=== PATIENT | male | born 1955 ===

== ENCOUNTER 2017-07-25 06:17 | Day surgery (SDC) | payer OTHER ==
[~2017-07-25 06:17] MED LIST: CHONDROITIN SU A/HYALUR SOD 1 KIT IO ONE; EPINEPHrine/PF 1 MG/1 ML (1:1,000) AMPULE IV ONE; LIDOCAINE HCL 1% PRESERVATIVE FREE - 30ML VIAL IO ONE; LIDOCAINE HCL 4% TOPICAL SOLN (50 ML/BOTTLE) TP ONE
[2017-07-25 06:37] VITALS: BMI 23.6
[2017-07-25] MEDS: CIPROFLOXACIN 0.3% EYE DROPS 5 ML BOTTLE ONE ×3 (07:00→07:15)
[2017-07-25] MEDS: CYCLOPENTOLATE HCL 1% OPHTH SOLN 2 ML BOTTLE OP SCH ×3 (07:00→07:15)
[2017-07-25] MEDS: FLURBIPROFEN 0.03% OPHTH SOLN 2.5 ML BOTTLE OP SCH ×3 (07:00→07:30)
[2017-07-25] MEDS: PHENYLEPHRINE 2.5% OPHTH SOLN 15 ML BOTTLE OP SCH ×3 (07:00→07:30)
[2017-07-25] MEDS: TROPICAMIDE 1% OPHTH SOLN 15 ML BOTTLE OP SCH ×3 (07:00→07:30)
[2017-07-25] MEDS ORDERED: FLURBIPROFEN 0.03% OPHTH SOLN 2.5 ML BOTTLE ONE (07:14)
[2017-07-25] MEDS ORDERED: CYCLOPENTOLATE HCL 1% OPHTH SOLN 2 ML BOTTLE ONE (07:14)
[2017-07-25] MEDS ORDERED: TROPICAMIDE 1% OPHTH SOLN 15 ML BOTTLE ONE (07:14)
[2017-07-25] MEDS ORDERED: PHENYLEPHRINE 2.5% OPHTH SOLN 15 ML BOTTLE ONE (07:14)
[2017-07-25] MEDS ORDERED: LIDOCAINE HCL/PF 1% SDV 5ML VIAL ONE (07:32)
[2017-07-25] MEDS ORDERED: EPINEPHrine/PF 1 MG/1 ML (1:1,000) AMPULE ONE (07:32)
[2017-07-25] MEDS ORDERED: ACETYLCHOLINE 1:100 INTRA-OCUL 20 MG/2 ML KIT ONE (07:33)
[2017-07-25] MEDS ORDERED: LIDOCAINE HCL 4% PRESERVE-FREE 5 ML AMP ONE (07:34)
[2017-07-25] MEDS ORDERED: POVIDONE-IODINE 5% OPHTHALMIC PREP 30 ML SOLUTION ONE (07:35)
[2017-07-25] MEDS ORDERED: TETRACAINE 0.5% OPHTH SOLN 2 ML BOTTLE ONE (07:35)
[2017-07-25] MEDS ORDERED: MIDAZOLAM HCL 2 MG/2 ML SINGLE DOSE VIAL ONE (08:06)
[2017-07-25] MEDS ORDERED: LIDOCAINE HCL 4% TOPICAL SOLN (50 ML/BOTTLE) TP ONE (08:20)
[2017-07-25] MEDS ORDERED: LIDOCAINE HCL 1% PRESERVATIVE FREE - 30ML VIAL IO ONE (08:21)
[2017-07-25] MEDS ORDERED: CHONDROITIN SU A/HYALUR SOD 1 KIT IO ONE (08:21)
[2017-07-25] MEDS ORDERED: EPINEPHrine/PF 1 MG/1 ML (1:1,000) AMPULE IV ONE (08:25)
[2017-07-25] MEDS ORDERED: CIPROFLOXACIN HCL 0.3% OPHTH 2.5ML BOTTLE OP SCH (09:00)
--- NOTE | 2017-07-25 09:25 | OP ---
DATE OF OPERATION: 07/25/2017 PREOPERATIVE DIAGNOSIS: Cataract, right eye. POSTOPERATIVE DIAGNOSIS: Cataract, right eye. OPERATION: Planned phacoemulsification with posterior chamber lens implantation, right eye. SURGEON: Benny Pulido M.D. ANESTHESIA: Topical. COMPLICATIONS: None. PROCEDURE: The patient was taken to the operating room and anesthesia began with intravenous fluids and sedation. The patient then received topical anesthesia on the right eye. The patient was prepped and draped in the usual manner for sterile ophthalmic surgery. A speculum was inserted into the right eye. A self-sealing stab incision was made at the 3:00 and 10:00 positions. Viscoat was inserted into the anterior chamber. Using a 2.65 mm keratome, a self-sealing incision was made in temporal location into the anterior chamber. A 360-degree continuous capsulorrhexis was then performed. The nucleus was dislocated with hydrodissection. The nucleus was then removed from the eye with phacoemulsification with posterior capsule remaining intact. Irrigation and aspiration removed the remaining cortex from the eye. The capsule was polished. A posterior chamber lens was inserted in the bag and well centered. The posterior chamber lens was model [id number] 20 diopter. The remaining Viscoat was removed from the eye. The wound was self-sealing. Stromal hydration was performed for increased insurance of wound closure. Patient completed the procedure in uncomplicated fashion and went to the ambulatory surgical unit in stable condition. BENNY PULIDO M.D. [id number]
[2017-07-25 09:39] VITALS: BP 123/81; PULSE 76
[2017-07-25 09:41] VITALS: TEMP 98.1
== END 2017-07-25 09:40 | disposition home or self-care (01) ==
LOC: JASU-SURG 06:17
PROVIDERS: ATTEND Ophthalmology
PROC: 08RJ3JZ Replacement of Right Lens with Synthetic Substitute, Percutaneous Approach (ICD-10-PCS; principal; 2017-07-25 08:00)
DX: H26.9 Unspecified cataract (principal); F31.9 Bipolar disorder, unspecified; E11.42 Type 2 diabetes mellitus with diabetic polyneuropathy; E78.5 Hyperlipidemia, unspecified
CPT/HCPCS: 82962

== ENCOUNTER 2024-11-08 13:21 | Observation (INO) | payer OTHER ==
[2024-11-08 13:30] VITALS: BMI 21.2
[2024-11-08] MEDS: LACTATED RINGERS SOLUTION 1000 ML INFUS.BAG IV ONE ×2 (14:07→15:20)
[2024-11-08 14:17] LABS: ABSOLUTE IMMATURE GRANULOCYTES 0.02 x10^3/uL (0.0-0.031); BASOPHILS # 0.01 x10^3/uL (0.01-0.08); EOSINOPHIL % 0.6 % (0.8-7.0); EOSINOPHILS # 0.05 x10^3/uL (0.04-0.54); MCHC 32.4 g/dl (32.3-36.5); MEAN CELL VOLUME 87.0 fl (79.0-92.2); MEAN PLT VOLUME 9.5 fl (9.4-12.4); MONOCYTE # 0.60 x10^3/uL (0.30-0.82); MONOCYTE % 7.4 % (5.3-12.2); RDW 13.2 % (12.2-16.4)
[2024-11-08 14:22] LABS: INR 1.05 (0.83-1.09); PROTHROMBIN TIME (PATIENT) 11.5 SEC (9.7-13.0)
[2024-11-08 14:25] LABS: ACTIVATED PTT 21.7 SECONDS (25.2-36.5)
[2024-11-08 14:42] LABS: GLUCOSE,RANDOM 179.0 mg/dL (74-106)
[2024-11-08 14:43] LABS: TOT PROT 8.2 g/dl (6.4-8.2)
[2024-11-08 14:44] LABS: CO2 23.0 mmol/L (21-32)
[2024-11-08 14:45] LABS: ALK PHOS 47.0 U/L (40-150)
[2024-11-08 14:48] LABS: SGOT/AST 40.0 U/L (5-34); SGPT/ALT 19.0 U/L (0-55)
[2024-11-08 14:49] LABS: CREATININE 0.64 mg/dL (0.55-1.3)
[2024-11-08 14:55] LABS: LACTIC ACID 3.2 mmol/L (0.4-2.0)
[2024-11-08 16:43] LABS: HIV INTERPRETATION NEGATIVE (NEGATIVE)
[2024-11-08 17:01] LABS: URINE APPEARANCE CLEAR; URINE BILIRUBIN NEGATIVE (NEGATIVE); URINE COLOR YELLOW; URINE GLUCOSE (UA) 3+ (NEGATIVE); URINE KETONE TRACE (NEGATIVE); URINE LEUK ESTERASE NEGATIVE (NEGATIVE); URINE NITRITE NEGATIVE (NEGATIVE); URINE PROTEIN NEGATIVE (NEGATIVE); URINE UROBILINOGEN 0.2 mg/dL (0.2-1.0)
[2024-11-08 17:16] LABS: GLUCOSE,RANDOM 69.0 mg/dL (74-106)
[2024-11-08 17:18] LABS: CO2 24.0 mmol/L (21-32)
[2024-11-08 17:18] LABS: HCV DIAGNOSTIC IN-HOUSE W/RFLX REACTIVE (NONREACTIVE)
[2024-11-08 17:22] LABS: CREATININE 0.67 mg/dL (0.55-1.3)
[2024-11-08 17:23] LABS: LACTIC ACID 4.1 mmol/L (0.4-2.0)
[2024-11-08] MEDS: SODIUM CHLORIDE 0.9% 500 ML INFUS.BAG IV ONE (17:45)
[2024-11-08] MEDS ORDERED: ACETAMINOPHEN 500 MG TABLET (FP) PO PRN (20:50)
[2024-11-08] MEDS: SODIUM CHLORIDE 0.45% 1,000 ML IV SCH (22:56)
[2024-11-09 07:58] LABS: ABSOLUTE IMMATURE GRANULOCYTES 0.02 x10^3/uL (0.0-0.031); BASOPHILS # 0.02 x10^3/uL (0.01-0.08); EOSINOPHIL % 1.4 % (0.8-7.0); EOSINOPHILS # 0.09 x10^3/uL (0.04-0.54); MCHC 32.1 g/dl (32.3-36.5); MEAN CELL VOLUME 88.0 fl (79.0-92.2); MEAN PLT VOLUME 9.0 fl (9.4-12.4); MONOCYTE # 0.58 x10^3/uL (0.30-0.82); MONOCYTE % 8.8 % (5.3-12.2); RDW 13.0 % (12.2-16.4)
[2024-11-09 08:14] LABS: GLUCOSE,RANDOM 75.0 mg/dL (74-106); TOT PROT 6.3 g/dl (6.4-8.2)
[2024-11-09 08:15] LABS: CO2 24.0 mmol/L (21-32)
[2024-11-09 08:16] LABS: ALK PHOS 42.0 U/L (40-150)
[2024-11-09 08:19] LABS: SGOT/AST 18.0 U/L (5-34); SGPT/ALT 11.0 U/L (0-55)
[2024-11-09 08:20] LABS: CREATININE 0.65 mg/dL (0.55-1.3)
[2024-11-09 08:42] LABS: SYPHILIS W/ RPR CONF REACTIVE (NONREACTIVE)
[2024-11-09] MEDS ORDERED: PIPERACILLIN/TAZOB 3.375 GM 3.375 GM in DEXTROSE 5%-WATER - 50 ML IVPB SCH (10:00)
[2024-11-09] MEDS: DIVALPROEX SODIUM 500 MG TABLET E.C. PO SCH ×2 (10:40→21:43)
[2024-11-09] MEDS: LISINOPRIL 5 MG TABLET PO SCH (10:40)
[2024-11-09] MEDS: CYANOCOBALAMIN (VITAMIN B-12) 1000 MCG/1 ML VIAL IM ONE (10:40)
[2024-11-09] MEDS: PIPERACILLIN/TAZOB 3.375 GM 3.375 GM in DEXTROSE 5%-WATER - 50 ML IVPB SCH (12:17)
[2024-11-09 16:28] LABS: IRON SERUM 53.0 ug/dL (50-175)
[2024-11-09 23:52] LABS: RPR REFLEX REACTIVE 1:1 (NONREACTIVE)
[2024-11-10 08:11] LABS: ABSOLUTE IMMATURE GRANULOCYTES 0.03 x10^3/uL (0.0-0.031); BASOPHILS # 0.02 x10^3/uL (0.01-0.08); EOSINOPHIL % 2.2 % (0.8-7.0); EOSINOPHILS # 0.14 x10^3/uL (0.04-0.54); MCHC 32.1 g/dl (32.3-36.5); MEAN CELL VOLUME 87.2 fl (79.0-92.2); MEAN PLT VOLUME 9.0 fl (9.4-12.4); MONOCYTE # 0.56 x10^3/uL (0.30-0.82); MONOCYTE % 9.0 % (5.3-12.2); RDW 12.9 % (12.2-16.4)
[2024-11-10 08:30] LABS: GLUCOSE,RANDOM 122.0 mg/dL (74-106)
[2024-11-10 08:31] LABS: TOT PROT 7.1 g/dl (6.4-8.2)
[2024-11-10 08:32] LABS: CO2 23.0 mmol/L (21-32)
[2024-11-10 08:33] LABS: ALK PHOS 47.0 U/L (40-150)
[2024-11-10 08:36] LABS: CREATININE 0.71 mg/dL (0.55-1.3); SGOT/AST 18.0 U/L (5-34); SGPT/ALT 14.0 U/L (0-55)
[2024-11-10 10:14] VITALS: RESP 18
[2024-11-10] MEDS: CYANOCOBALAMIN (VITAMIN B-12) 1000 MCG/1 ML VIAL IM ONE (13:35)
[2024-11-10] MEDS: PENICILLIN G BENZATHINE 2,400,000 UNIT/4 ML PFS IM ONE (14:48)
[2024-11-10 14:51] VITALS: BP 113/67; PULSE 80; TEMP 97.7
== END 2024-11-10 15:00 | disposition home or self-care (01) ==
LOC: JER 13:21 → JERBED 19:03 → J7W 21:17
PROVIDERS: ADMIT Internal Medicine; ATTEND Internal Medicine
PROC: 3E0337Z Introduction of Electrolytic and Water Balance Substance into Peripheral Vein, Percutaneous Approach (ICD-10-PCS; principal; 2024-11-08)
PROC: 3E023GC Introduction of Other Therapeutic Substance into Muscle, Percutaneous Approach (ICD-10-PCS; 2024-11-08)
PROC: 3E02329 Introduction of Other Anti-infective into Muscle, Percutaneous Approach (ICD-10-PCS; 2024-11-08)
DX: E87.20 Acidosis, unspecified (principal); K04.7 Periapical abscess without sinus; R26.2 Difficulty in walking, not elsewhere classified; F31.9 Bipolar disorder, unspecified; G20.A1 Parkinson's disease without dyskinesia, without mention of fluctuations; R53.1 Weakness; R01.1 Cardiac murmur, unspecified; A52.8 Late syphilis, latent
CPT/HCPCS: 36415; 70450-TC; 70486-TC; 70551-TC; 71045-TC-FY; 72141-TC; 80048; 80053; 81003; 82550; 82607; 82728; 82962; 83540; 83550; 83605; 83690; 83735; 84100; 84443; 84466; 84484; 85025; 85610; 85730; 86593; 86780; 86803; 87040; 87086; 87389; 87522; 87902; 93005; 93010; 99285-25; G0378